=== PATIENT | male | born 1945 | race Caucasian/White ===

== ENCOUNTER → 2023-12-23 | Emergency (ER) | payer OTHER ==
[~2023-12-23] VITALS: Ht 167.6 cm; Wt 71.2 kg
[~2023-12-23] MED LIST: CEFAZOLIN SODIUM 1,000 MG VIAL IM STA; CEFAZOLIN SODIUM 1,000 MG VIAL ONE; COZAAR25 MG PO; TETANUS & DIPHTHERIA TOX,ADULT 0.5 ML VIAL IM STA; TETANUS DIPHTHERIA TOX. ADSOR 5 ML VIAL IM ONE; VERELAN PM100 MG PO
== END | disposition left against medical advice (07) ==
LOC: ER 20:20
DX: Z53.21 Procedure and treatment not carried out due to patient leaving prior to being seen by health care provider (principal)